=== PATIENT | male | born 1975 | race Caucasian/White ===

== ENCOUNTER 2025-03-15 15:43 | Emergency (ER) | payer SELFPAY ==
[2025-03-15 15:51] VITALS: BP 118/68; PULSE 90; RESP 20; TEMP 36.6; O2SAT 93
--- NOTE | 2025-03-15 16:02 | ED_ITS ---
HPI - URI/Sore Throat General Chief Complaint: Upper Respiratory Infection Stated Complaint: body ache Time Seen by Provider: 03/15/25 16:05 Source: patient, RN notes reviewed and old records reviewed Mode of arrival: ambulatory Limitations: no limitations History of Present Illness HPI Narrative: 49 year old male presents to express care with complaints of cough since yesterday reports that he has coughed so hard that he has vomited, has had hoarseness and also body aches. Patient reports that he just recently flew home from [facility]. Patient has not taken any OTC medication for his symptoms. Patient reports that cough is dry and he does feel some dyspnea with exertion. MD elicited complaint: cough and other (body aches and hoarseness, dyspnea with exertion) Onset (ago): day(s) (day 2 of symptoms) Severity: moderate Able to tolerate fluids by mouth: Yes Exacerbating factors: exertion Treatments prior to arrival: none Related Data Allergies Allergy/AdvReac Type Severity Reaction Status Date / Time No Known Allergies Allergy Unverified 11/19/17 12:59 Review of Systems Review of Systems: CONSTITUTIONAL: Reports malaise, chills, sweats, or fever. EYES: Denies visual changes, redness, or discharge. ENT: Reports rhinorrhea, congestion, sinus pain, no otalgia and no sore throat. CARDIOVASCULAR: Denies chest pain, palpitations, or edema. RESPIRATORY: Reports dry cough.? Reports some dyspnea with exertion GASTROINTESTINAL: Denies abdominal pain, nausea, has vomiting at times with cough, no diarrhea SKIN: Denies rash or itching. MUSCULOSKELETAL: Reports myalgia. NEUROLOGIC: Denies headache. All systems reviewed & are unremarkable except as noted in HPI and below PMFSH Past Medical History Medical History (Updated 03/17/25 @ 19:13 by Zully Jay NP) Elevated cholesterol Hypertension Surgical History Surgical History (Updated 03/17/25 @ 19:16 by Zully Jay NP) H/O adenoidectomy Social History Social History (Updated 03/17/25 @ 19:17 by Zully Jay NP) Smoking status: Never smoker Alcohol intake: current Alcohol use details: social Substance use type: does not use Living arrangements: with family Gender identity (if verbalized by the patient): Male Comments At time of signature, agree with nursing past medical, surgical, social and family history. There is no relevant family history pertinent to the presenting complaint Exam Narrative: GENERAL: Well-appearing, well-nourished, and in no acute distress. HEAD: Normocephalic EYES: PERRLA, conjunctivae clear ENT: Nares clear, turbinates edematous and erythematous, clear discharge. Mucous membranes moist. TM pearly iniguez with dull light reflex bilaterally; no tragal tenderness. Oropharynx erythematous without lesions. Tonsils not enlarged and without exudate, no drooling, no hoarseness, no trismus, uvula midline. NECK: Supple. No lymphadenopathy CHEST: Clear to auscultation, breath sounds equal. No wheezing, rhonchi, rales, or stridor. No respiratory distress, speaks in full sentences.cough SAO2 93% on room air HEART: Regular rate and rhythm. No murmur heard. SKIN: Warm, dry, no rash. NEURO: Alert and oriented x3. PSYCH: Normal mood and affect Course Course Emergency Course: Patient is aware of diagnosis, understands and agrees to treatment plan.? Anticipatory guidance given.? Patient agrees to follow-up as directed and is aware of reasons to seek care at the emergency department. Portions of this record may have been created with voice recognition software Level of Care: Express Care Visit Vital Signs Vital signs: Vital Signs Temperature 36.6 C 03/15/25 15:51 Pulse Rate 90 03/15/25 15:51 Respiratory Rate 20 03/15/25 15:51 Blood Pressure 118/68 03/15/25 15:51 Pulse Oximetry 93 03/15/25 15:51 Oxygen Delivery Room Air 03/15/25 15:51 Temperature 36.6 C 03/15/25 15:51 Pulse Rate 90 03/15/25 15:51 Respiratory Rate 20 03/15/25 15:51 Blood Pressure 118/68 03/15/25 15:51 Pulse Oximetry 93 03/15/25 15:51 Oxygen Delivery Room Air 03/15/25 15:51 Reviewed MDM - URI/Sore Throat MDM Narrative Medical decision making narrative: Differential diagnosis considered: Mol[place] virus, strep pharyngitis, allergic rhinitis, upper respiratory tract infection, sinusitis, rhinosinusitis, nasopharyngitis. viral pharyngitis, otitis media, otitis externa, pneumonia, bronchitis, viral cough syndrome, viral syndrome, and influenza.? Exam findings show no acute concerns or changes; patient is non-toxic appearing and is in no distress.? Patient is appropriate for outpatient treatment and follow-up. Differential Diagnosis Differential diagnosis: Likely upper respiratory infection, sinusitis, viral infection, influenza and other (acute cough, dyspnea with exertion) Medical Records Attestation: I reviewed the patient's medical records. Lab Data Attestation: I reviewed the patient's lab results. Lab results narrative: influenza A positive, Influenza B negative, Covid antigen negative Labs: Lab Results 03/15/25 Range/Units 15:58 POC Influenza A Ag Positive (Negative) POC Influenza B Ag Negative (Negative) POC SARS CoV-2 Ag Negative (Negative) reviewed Critical Care Time Critical Care Time Critical Care Time: No Discharge Plan Discharge Clinical Impression: Influenza A Patient Disposition: Home Condition: Stable Instructions: Antibiotic Form, Influenza (ED) Additional Instructions: Increase fluids especially juices and water [id number] cough and cold medicine of your choice for your symptoms Zyrtec Claritin or Sana daily Continue your inhaler/nebulizer as directed Steroids as directed--take with food heat to the face 20-30 minutes 4-6 times a day for pain Salt water gargles, throat lozenges or throat sprays as desired Monitor temperature daily If your symptoms persist, change or worsen significantly before you can contact your personal physician then please, without delay, go to the emergency department for further evaluation. Follow-up with PCP in 7-10 days or sooner if needed Must be fever free for 24 hours without use of Tylenol or Ibuprofen before you can be around others Patient Language: Danish Prescriptions: New albuterol sulfate [Ventolin HFA] 90 mcg/actuation HFA aerosol inhaler 2 puff inhalation QID PRN (Reason: shortness of breath or wheezing) Qty: 8.5 0RF prednisone 20 mg tablet 40 mg PO DAILY 5 Days Qty: 10 0RF Follow-up/Referrals: UNKNOWN,DOCTOR [Primary Care Provider] - Time of Disposition: 16:25 Quality [place] Coma Scale Eyes: Open Verbal: Oriented and Alert Motor: Follows Commands Rony Coma Total Score: 15
[2025-03-15 16:19] LABS: EDINFLUASCREEN Positive (Negative); EDINFLUBSCREEN Negative (Negative)
[2025-03-15 16:26] LABS: EDCOVIDSCREEN Negative (Negative)
--- OUTSIDE RECORDS SUMMARY | 2025-03-15 16:58 | XMS_ITS | Clinical Summary ---
Author Organization [facility] Address [address] [place] [address] Phone Care Team Providers Care Manager Salt Name Role Phone Provider, None Primary Care Provider Unavailabl e Allergies No known active allergies Medications traMADol (ULTRAM) 50 MG Tablet Take 1 Tab by mouth every 6 hours as needed for Pain. 20 Tab 11/19/2017 Active Social History Tobacco Use Types Packs/Day Years Used Date Smoking Tobacco: Never Smokeless Tobacco: Never Alcohol Use Standard Drinks/Week Comments Yes 0 (1 standard drink = 0.6 oz pur e alcohol) daily Sex and Gender Information Value Date Recorded Sex Assigned at Not on file Legal Sex Male 12:28 AM CDT Gender Identity Not on file Sexual Orientation Not on file Last Filed Vital Signs Vital Sign Reading Time Taken Comments Blood Pressure 128/94 11/19/2017 3:37 PM [employer] Pulse 76 11/19/2017 3:37 PM [employer] Temperature 36.9 C (98.4 F) 11/19/2017 2:40 PM [employer]IST Respiratory Rate 16 11/19/2017 2:40 PM [employer]IST Oxygen Saturation 98% 11/19/2017 2:40 PM [employer]IST Inhaled Oxygen Concentration - - Weight 113.4 kg (250 lb) 11/19/2017 2:40 PM D[employer]IST Height 180.3 cm (5' 11 ) 11/19/2017 2:40 PM D[employer]IST Body Mass Index 34.87 11/19/2017 2:40 PM D[employer] Plan of Treatment Not on file Care Teams Manager Salt Relationship Specialty Start Date End Date Provider, None [place] PCP - General 11/19/17
--- OUTSIDE RECORDS SUMMARY | 2025-03-15 16:58 | XMS_ITS | Data Portability ---
Author Organization [facility] Address [address] [facility] [place] [address] Care Team Providers Care Regulatory Compliance Director Name Role Phone JACKELIN HARRIS Primary Care Provider Assessment No assessment recorded. Plan of Treatment Reminders Order Date Submit Date Provider Last Modified By Organization Details Last Modified Time Details Appointments None recorded. Lab lipid panel, serum 2024 025 [email or web address] [facility], [address] [facility] [address], [place], [address], 5 13:21:03 prolactin, serum 2023 024 JORDEN [facility], [address] [facility] [address], [address], 4 17:09:57 cortisol, am, serum 2023 024 JORDEN [facility], [address] [facility], [facility], [place], [address], 4 17:09:56 testosteron e, free + total, serum 2023 024 JORDEN [facility], [address] [facility], [facility] [address], [place], [address], 4 17:09:57 testosteron e, free + total, serum 2023 024 JORDEN [facility], [address] [facility], [facility] [address], [place], [address], 4 19:08:46 TSH, ultra-sensi tive, serum 2023 024 JORDEN [facility], [address], [place], [address], 4 19:08:47 ferritin, serum or plasma 2023 024 JORDEN [facility], [address], [place], [address], 4 19:08:51 folate, serum 2023 024 JORDEN [facility], [address], [place], [address], 4 19:08:50 iron + total iron-bindin g capacity (TIBC), serum 2023 024 JORDEN [facility], [address], [place], [address], 4 19:08:49 retic count, blood 2023 024 JORDEN [facility], [address], [place], [address], 4 19:08:52 vitamin B12, serum 2023 024 JORDEN [facility], [address] [facility], [place], [address], 4 19:08:48 HbA1c (hemoglobin A1c), blood 2023 024 JORDEN In-Office Order, Internal Use Only DO Not Attach Compendium DO Not Attach Compendium, Do Not Delete/merge, [id number] 4 16:38:16 lipid panel, serum 2023 024 JORDEN [facility], [address], [place], [address], 4 09:13:34 albumin/cre atinine, mass ratio, urine 2023 024 WAVERLY [facility], [address] [facility], [facility], [place], [address], 4 09:13:33 Referral gastroenter ologist referral 2024 025 [email or web address] 1 [facility], [address], [place], [address], 5 13:00:26 mental health counselor referral 2023 024 [email or web address] Phoebe Sebastian [facility], [address] [facility] , [address], [place], [address], 4 15:55:35 Procedures None recorded. Surgeries None recorded. Imaging None recorded. Medication Orders amlodipine 10 mg tablet 2024 025 [id number], [address], [place], [place], [id number], 5 09:39:16 Cialis 10 mg tablet 2023 024 [facility]AVERLY [id number], [address], [place], [place], [id number], 4 16:29:01 amlodipine 10 mg tablet 2023 024 WAVERLY [facility] #[id number], [address], [place], [place], [id number], 4 11:44:14 Patient TargetsNo targets recorded. Patient Instructions Encounter Date Encounter Id Patient Instructions Last Modified By Organization Details Last Modified Time 03/06/2024 [id number] Attending Physician Addendum I did not personally see or examine the patient with the resident. I was physically present to provide indirect supervision through entire encounter. I have reviewed the documentation and agree with the history, physical findings, work-up, and medical decision making as recorded. MD barron [email or web address] Not available 03/06/2024 10:46:42 04/06/2024 [id number] A healthy lifestyle: care instructions Not available 04/06/2024 17:33:56 Attending Physician Addendum I did not personally see or examine the patient with the resident. I was physically present to provide indirect supervision through entire encounter. I have reviewed the documentation and agree with the history, physical findings, work-up, and medical decision making as recorded. Vangie Horvath MD [email or web address] Not available 04/13/2024 08:45:49 06/06/2024 [id number] On the date of this encounter, I was immediately available to assist the resident/fellow in the care of the patient, and have reviewed and agree with the resident s findings and plan of care. ~MD amparo [email or web address] Not available 06/22/2024 00:51:46 06/29/2024 [id number] On the date of this encounter, I was immediately available to assist the resident/fellow in the care of the patient, and have reviewed and agree with the resident s findings and plan of care. ~MD amparo [email or web address] Not available 06/29/2024 16:41:08 01/02/2025 [id number] A healthy lifestyle: care instructions [email or web address] Not available 01/02/2025 09:38:56 I was present in the clinic to discuss this patient at the time of the visit. I agree with the documented assessment and plan Semaj Lopez MD [email or web address] Not available 01/02/2025 09:45:18 Reason for Referral Mental Health Counselor Refe rral for Depressive disorder Referring Physician: Jackelin Harris, Family Medicine, Encounter Date: 06/29/2024 [employer] Specialist Referral for Screening for malignant neoplasm of colon screening colonoscopy only Referring Physician: Sandra Prajapati, Boardmarker, Encounter Date: 01/02/2025 Results Created Date Observation Date Name Description Value Unit Range Abnormal Flag Note LastModifiedBy Organization Detail LastModifiedTime 03/08/20 24 03/08/2024 HbA1c (hemo globi n A1c), blood HbA1c 5.6 Not Available In-Office Order Internal Use Only DO Not Attach Compendium DO Not Attach Compendium, Do Not Delete/merge, [id number] 03/06/2024 10:46:20 03/16/20 24 03/17/2024 ALBUM IN/CR EATIN INE RATIO ,URIN E creatinine, urine 56.9 mg/dL notest ab. Not Available [facility] ([facility]) [address] [place], [address], 03/17/2024 09:13:33 03/16/20 24 03/17/2024 ALBUM IN/CR EATIN INE RATIO ,URIN E albumin, urine 11.5 ug/mL notest ab. Not Available [facility] ([facility]) [address] [place], [address], 03/17/2024 09:13:33 03/16/20 24 03/17/2024 ALBUM IN/CR EATIN INE RATIO ,URIN E alb/creat ratio 20 mg/g_ creat 0-29 Uyen l: 0 - 29 Moder ately incre ased: 30 - 300 Sever amelia incre ased: >300 Not Available [facility] ([facility]) [address] [place], [address], 03/17/2024 09:13:33 03/16/20 24 03/17/2024 LIPID PANEL cholesterol, total 215 mg/dL 100-19 9 above high normal Not Available [facility] ([facility]) [address] [place], [address], 03/17/2024 09:13:34 03/16/20 24 03/17/2024 LIPID PANEL triglyceride s 207 mg/dL 0-149 above high normal Not Available [facility] ([facility]) [address] [place], [address], 03/17/2024 09:13:34 03/16/20 24 03/17/2024 LIPID PANEL HDL cholesterol 41 mg/dL >39 Not Available [facility] ([facility]) [address] [place], [address], 03/17/2024 09:13:34 03/16/2003/17/2024 LIPID PANEL VLDL cholesterol jarod 37 mg/dL 5-40 Not Available [facility] ([facility]) [address] [place], [address], 03/17/2024 09:13:34 03/16/20 24 03/17/2024 LIPID PANEL LDL chol calc ([facility]) 137 mg/dL 0-99 above high normal Not Available [facility] ([facility]) [address] [place], [address], 03/17/2024 09:13:34 04/06/20 24 04/07/2024 TESTO STERO NE,FR EE AND TOTAL testosterone 241 NG/dL 264-91 6 below low normal Adult male refer ence inter yasmine is based on a popul ation of healt hy nonob milan males (BMI <30) betwe en 19 and 39 years old. Leo aleman, et.al . JCEM 2017, 102;1 161-1 173. PMID: 02951 103. Not Available [facility] ([facility]) [address] [facility], [place], [address], 04/14/2024 19:08:45 04/06/20 24 04/14/2024 TESTO STERO NE,FR EE AND TOTAL free testosterone (direct) 1.9 pg/mL 6.8-21 .5 below low normal Not Available [facility] ([facility]) [address] [place], [address], 04/14/2024 19:08:45 04/06/2004/07/2024 TSH RFX ON ABNOR MAL TO FREE T4 TSH 1.010 uIU/m L 0.450- 4.500 Not Available [facility] ([facility]) [address] [place], [address], 04/14/2024 19:08:47 04/06/2004/07/2024 VITAM IN B12 W REFLE X <400 vitamin B12 1070 pg/mL 232-12 45 Not Available [facility] ([facility]) [address] [facility], [place], [address], 04/14/2024 19:08:48 04/06/2004/07/2024 IRON AND TIBC iron bind.cap.(TI BC) 262 ug/dL 250-45 0 Not Available [facility] ([facility]) [address] [facility], [place], [address], 04/14/2024 19:08:49 04/06/2004/07/2024 IRON AND TIBC UIBC 181 ug/dL 111-34 3 Not Available [facility] ([facility]) [address] [facility], [place], [address], 04/14/2024 19:08:49 04/06/2004/07/2024 IRON AND TIBC iron 81 ug/dL 38-169 Not Available [facility] ([facility]) [address] [facility], [place], [address], 04/14/2024 19:08:49 04/06/2004/07/2024 IRON AND TIBC iron saturation 31 % 15-55 Not Available [facility] ([facility]) [address] [facility], [place], [address], 04/14/2024 19:08:49 04/06/2004/07/2024 FOLAT E (FOLI C ACID) , SERUM folate (folic acid), serum 8.5 NG/mL >3.0 A serum folat e jonathan ntrat ion of less than 3.1 ng/mL is consi dered to repre sent clini jarod defic iency . Not Available [facility] ([facility]) [address] [facility], [place], [address], 04/14/2024 19:08:50 04/06/2014 0404/07/2024 QUE TIN ferritin 395 NG/mL 30-400 Not Available [facility] ([facility]) [address] [place], [address], 04/14/2024 19:08:51 04/06/20 24 04/07/2024 RETIC ULOCY TE COUNT reticulocyte count 1.7 % 0.6-2. 6 Not Available [facility] ([facility]) [address] [place], [address], 04/14/2024 19:08:52 04/24/20 24 04/25/2024 FSH AND LH LH 9.4 mIU/m L 1.7-8. 6 above high normal Not Available [facility] ([facility]) [address] [place], [address], 04/25/2024 13:11:35 04/24/20 24 04/25/2024 FSH AND LH FSH 11.9 mIU/m L 1.5-12 .4 Not Available [facility] ([facility]) [address] [place], [address], 04/25/2024 13:11:35 06/26/20 24 06/27/2024 CORTI DOLORES - AM cortisol - AM 10.3 ug/dL 6.2-19 .4 Not Available [facility] ([facility]) [address] [place], [address], 06/28/2024 17:09:56 06/26/20 24 06/27/2024 TESTO STERO NE,FR EE AND TOTAL testosterone 348 NG/dL 264-91 6 Adult male refer ence inter yasmine is based on a popul ation of healt hy nonob milan males (BMI <30) betwe en 19 and 39 years old. Leo aleman et.al . JCEM 2017, 102;1 161-1 173. PMID: 32228 103. Not Available [facility] ([facility]) [address] [place], [address], 06/28/2024 17:09:56 06/26/20 24 06/28/2024 TESTO STERO NE,FR EE AND TOTAL free testosterone (direct) 5.4 pg/mL 6.8-21 .5 below low normal Not Available [facility] ([facility]) [address] [facility], [place], [address], 06/28/2024 17:09:56 06/26/20 24 06/27/2024 PROLA CTIN prolactin 7.9 NG/mL 3.9-22 .7 Not Available [facility] ([facility]) [address] [facility], [place], [address], 06/28/2024 17:09:57 Result Notes None recorded. Problems Name Problem SNOMED Code Status Onset Date Resolution Date Notes Provider Name and Address Organization Details Recorded Time Essential hypertension 63140396 Active 2023 JACKELIN HARRIS MD Attn: Mindy gill,[address] [place], [address], [facility] 4 18:22:40 Obesity 380637850 Active 2023 JACKELIN HARRIS MD Attn: Mindy gill,[address] [place], [address], [place] [facility] 4 18:23:00 Reduced libido 3836778 Active 2023 JACKELIN HARRIS MD Attn: Mindy gill,[address] [place], [address], [place] [facility] 4 16:13:14 Hyperlipidemia 16152266 Active 2024 SANDRA PRAJAPATI DO Attn: Mindy gill,[address] [place], [address], [facility] 5 09:31:06 Problem Notes None recorded. Medical Equipment None Reported. Allergies No known drug allergies Medications Name Sig Start Date Stop Date Status Note LastModified by Organization Details LastModified Time amlodipine 10 mg tablet TAKE 1 TABLET BY MOUTH EVERY DAY active Not Available Not Available No t Available rosuvastati n 20 mg tablet TAKE 1 TABLET BY MOUTH EVERY DAY active Not Available Not Available No t Available tadalafil 10 mg tablet TAKE 1 TABLET BY MOUTH NEEDED 06/29 completed pt states it doesn't work ( 4) Not Available Not Available Not Available Vitals Date Recorded Body height Body mass index (BMI) Body weight Oxygen saturation Oxygen saturation in Arterial blood by Pulse oximetry Heart rate Respiratory rate Body temperature Systolic blood pressure Diastolic blood pressure Provider Name and Address Organization Details Last Updated DateTime 4 177.8 cm 34.9 kg/m2 598460. 75 g 95 % 95 % 80 /min 18 /min 96.5 [degF] 171 mm[Hg] 84 mm[Hg] Mauri simons [facility] [place] - [facility] 4 09:48:53 Date Recorded Body height Body mass index (BMI) Body weight Body temperature Respiratory rate Oxygen saturation Oxygen saturation in Arterial blood by Pulse oximetry Systolic blood pressure Diastolic blood pressure Provider Name and Address Organization Details Last Updated DateTime 4 177.8 cm 35 kg/m2 604326. 24 g 96.7 [degF] 18 /min 97 % 97 % 134 mm[Hg] 81 mm[Hg] Mauri simons [facility] [place] [facility] 4 15:40:45 Date Recorded Body height Body mass index (BMI) Body weight Respiratory rate Oxygen saturation Oxygen saturation in Arterial blood by Pulse oximetry Heart rate Body temperature Systolic blood pressure Diastolic blood pressure Provider Name and Address Organization Details Last Updated DateTime 4 177.8 cm 35.6 kg/m2 047034. 34 g 18 /min 93 % 93 % 71 /min 97.8 [degF] 130 mm[Hg] 86 mm[Hg] Basia Jenkins [facility] [place] - [facility] 4 15:52:57 Date Recorded Body height Body mass index (BMI) Body weight Heart rate Respiratory rate Body temperature Systolic blood pressure Diastolic blood pressure Provider Name and Address Organization Details Last Updated DateTime 4 177.8 cm 35.6 kg/m2 491220. 26 g 82 /min 18 /min 97.8 [degF] 129 mm[Hg] 76 mm[Hg] Molly Mcmanus MA [facility] 4 16:27:40 Date Recorded Body height Body mass index (BMI) Body weight Body temperature Respiratory rate Heart rate Oxygen saturation Oxygen saturation in Arterial blood by Pulse oximetry Systolic blood pressure Diastolic blood pressure Provider Name and Address Organization Details Last Updated DateTime 5 177.8 cm 37.9 kg/m2 885398. 44 g 98.6 [degF] 20 /min 80 /min 95 % 95 % 134 mm[Hg] 90 mm[Hg] Medina Miller MA [facility] 5 09:15:55 Social History Question Answer Notes LastModified by Organizat ion Details LastModified Time Tobacco Smoking Status Never [facility]oker [facility] 03/06/2024 09:42:14 Do You Have An Advance Directive? Yes Information not available 03/06/2024 What Is Your Level Of Alcohol Consumption? Moderate Information not available 03/06/2024 How Many Years Have You Consumed Alcohol? 14 Information not available 03/06/2024 Are You Blind Or Do You Have Difficulty Seeing? No Information not available 03/06/2024 What Is Your Level Of Caffeine Consumption? Moderate 5 Hr Energy 1 A Day Soda Sometimes Information not available 03/06/2024 In The 14 Days Before Symptom Onset, Have You Had Close Contact With A Laboratory-confi rmed COVID-19 While That Case Was Ill? No Information not available 03/06/2024 In The 14 Days Before Symptom Onset, Have You Had Close Contact With A Person Who Is Under Investigation For COVID-19 While That Person Was Ill? No Information not available 03/06/2024 Have You Been To An Area Known To Be High Risk For COVID-19? No Information not available 03/06/2024 Are You Currently Employed? Yes Information not available 03/06/2024 Are You Deaf Or Do You Have Serious Difficulty Hearing? No Information not available 03/06/2024 What Type Of Diet Are You Following? REGULAR Information not available 03/06/2024 What Is Your Occupation? Self Employed [employer] Information not available 03/06/2024 What Was The Date Of Your Most Recent Tobacco Screening? 01/02/2025 Information not available 01/02/2025 How Many Children Do You Have? 4 Information not available 03/06/2024 Do You Use Protection During Sex? No Information not available 03/06/2024 What Is Your Relationship Status? Information not available 03/06/2024 Do You Use Your Seat Belt Or Car Seat Routinely? Yes Information not available 03/06/2024 Are You Sexually Active? Yes Information not available 03/06/2024 Do You Have Smoke And Carbon Monoxide Detectors In Your Home? Yes Information not available 03/06/2024 Are You Passively Exposed To Smoke? Yes Information not available 03/06/2024 Do You Feel Stressed (tense, Restless, Nervous, Or Anxious, Or Unable To Sleep At Night)? [id number] Information not available 03/06/2024 Do You Use Any Illicit Or Recreational Drugs? No Information not available 06/06/2024 Do You Use Sunscreen Routinely? Yes Information not available 03/06/2024 Has Tobacco Cessation Counseling Been Provided? Yes Information not available 06/06/2024 On What Date Was Tobacco Cessation Counseling Provided? 01/02/2025 Information not available 01/02/2025 Do You Or Have You Ever Used Any Other Forms Of Tobacco Or Nicotine? No Information not available 06/06/2024 Sex: Male Functional Status Question Answer Note LastModified by Organization D etails LastModified Time Are you able to care for yourself? Yes Information not available 03/06/2024 What is your exercise level? Moderate Information not available 03/06/2024 Mental Status None recorded. Family History Relationship Description Onset Age of this Age Resolved Age Notes LastModified by Organization Details LastModified Time Sister Hypertensive disorder [email or web address] Not available 09:40:44 Notes:04/07/24, 01/02/25 Medical History No medical history recorded. Immunizations Vaccine Type Date Status Note Provider Juanito stahl and Address Organization Details Recorded Time Tdap 03/06/2024 completed Rere Noble LPN [facility], [place] - [facility] 03/07/2024 14:55:18 Past Encounters Encounter ID Performer Location Encounter Start Date Encounter Closed Date Diagnosis/Indication Diagnosis SNOMED-CT Code Diagnosis ICD10 Code Diagnosis Note [id number] MD Alejo Caldera 14 [address] [facility] [place] [address] 03/06/2024 09:27:59 03/20/2024 13:27:08 Administration of diphtheria, pertussis, and tetanus vaccine 269455298 Z23 patient due for tetanus booster Essential hypertension 10372003 I10 patient has elevated blood pressure in 2 separate locations and time. today blood pressure is elevated to 171/84. will start patient on amlodipine 10 mg as this will help patient's blood pressure . Will eval erectile dysfunctio n during next visit; amlodipine unlikely to worsen it. Obesity 824269072 E66.9 patient has no previous hemoglobin A1c results. will tests hemoglobin A1c to rule out diabetes [id number] MD Alejo Caldera 14 [address] [facility] [address] [place] [address] 04/06/2024 15:32:10 04/14/2024 13:14:18 Erectile dysfunction 369003663 F52.21 Patient has low energy low libido and endorses erectile dysfunctio n. Patient has not seen a doctor previously has had no previous workup done. We will assess for medical causes for lethargy that includes testostero ne levels, TSH, vitamin B12, and iron deficiency . We will provide patient with Cialis 10 mg as needed for now. Per chart review patient had slight elevations in LH and FSH but with normal testostero ne level. Maybe the testostero ne level was not done morning produces skewed result. We fully we will get more answers with repeat results. Patient does not qualify for primary hypogonadi sm if testostero ne is within normal limits. The new labs should shed light on the matter.Pre vious lab showed normal TSH and B12. Will also consider psych etiology if labs come back normal Obesity 203634565 E66.9 patient instructed to keep a log of his b/p before and after taking medication and bring back in 2wks.e - limit/avoi d consumptio n of processed foods. choose a diet rich in fruits, and vegetables , low fat, low carbs. - Eat less salt (sodium) - Excercise for at least 30 minutes a day on most days of the week - Limit the amount of caffine and alcohol you drink Essential hypertension 99011107 I10 patient has elevated blood pressure in 2 separate locations and time. Previous blood pressure was elevated to 171/84 so patient was started on amlodipine 10 mg daily. Today was 134/80. We will continue current medication . [id number] MD Alejo Beltran 14 IM [address] [facility] [place] [address] 06/06/2024 15:23:26 06/22/2024 14:16:12 Essential hypertension 61106061 I10 patient has elevated blood pressure in 2 separate locations and time. Previous blood pressure was elevated to 171/84 so patient was started on amlodipine 10 mg daily. Today was 134/80. We will continue current medication . Reduced libido 0721850 R 68.82 patient was prescribed sildenafil last time which did not help. we will further investigat e he has reduced libido check fast a.m. prolactin cortisols and testostero ne levels [id number] MD Alejo Beltran 14 IM [address] [facility] [place] [address] 06/29/2024 16:19:37 07/31/2024 12:37:39 Depressive disorder 50753906 F32.A Patient meets criteria for possible depressive disorder. Prev PHQ9 on 04/06 was postive with a score of 8. Patient informed benefits of Wellbutrin low libido and depression . Patient states he would think about it but would not like to start medication s at this time. Patient prefers counseling referral as a starting point. Physical reasons ruled out as testostero ne prolactin cortisol and FSH within normal limits [id number] MD Alejo Layton 14 IM [address] [facility] [place] [address] 01/02/2025 09:01:15 01/12/2025 11:36:56 Obesity 388354011 E66.9 Healthy lifestyle encouraged including regular exercise of at least 150min per week, diet rich in plant based foods and low in added sugars, processed carbohydra autumn, and high salt foods. Encouraged protein intake mostly with chicken and white fish and limited red meat. Essential hypertension 66575547 I10 Chronic controlled Continue amlodipine 10mg dailyFollo w up in 6 months Hyperlipidemia 52097445 E78.5 Chronic not at goallast LDL Feb 2024 - 137Started on rosuvastat in 20mg at that timeWill recheck lipid panel Screening for malignant neoplasm of colon 296188988 Z12.11 Will send referral to GI for screening colonoscop y onlyHe is self pay so if this is an issue we can try to send cologuard (may have financial assistance on their website) Health Concerns Section Related Observation LastModified by Organization Detai ls LastModified Time None Recorded Concern Status LastModified by Organization Details LastModified Time None Recorded Advance Directives Directive Y: Payers Encounter Date Sequence Insurance Name Policy Number Policy Almeida Covered Member ID Almeida Member ID Guarantor Name 04/06/2024 1 *SELF PAY* Ri cky Whyers 06/06/2024 1 *SELF PAY* Ri y Whyers Notes Date Note Type Note Provider Name and Address Organization Details Recorded Time 4 text/html 48 yo male with no known past medical history here to establish care. Patient states that he hasnt seen doc in 20 years. patient informs me that he went to [facility] due to low energy and libido and found out to have high blood pressure 190/20. Patient does complain of getting blurry vision at times. Patient denies severe headaches, nausea, vomiting, chest pain. patient denies history of smoking. Patient does state that he gets Lethargy in afternoon along with libido issues. Patient states he gets an erection for maybe a minute. Sometimes problems getting an erection but has no problem with morning erections. familyno diabetesno htnno strokesno cancerdad had valve replacement Socialfloor sheet metal duct installer workno smokingno drugsalcohol = 2 times a week couple of beers Vangie Horvath MD Attn: Accounting,[address] [facility], [place], [address], [facility] 03/15/2024 12:29:36 4 text/html 48 yo male with past medical history of essential hypertension here to follow-up. Patient states that he has been feeling okay since starting blood pressure meds. Does not complain of any side effects. Patient still endorses low energy and libido. Patient does state that he gets Lethargy in afternoon along with libido issues. Patient states he gets an erection for maybe a minute. Sometimes problems getting an erection but has no problem with morning erections. Patient denies severe headaches, nausea, vomiting, chest pain. patient denies history of smoking. Patient denies any back pain. familyno diabetesno htnno strokesno cancerdad had valve replacementSocialfloor sheet metal duct installer workno smokingno drugsalcohol = 2 times a week couple of ed Horvath MD Attn: Accounting,[address] [facility], [place], [address], [facility] 04/13/2024 08:45:59 4 text/html 48 yo male with past medical history of essential hypertension here to follow-up. Patient states that he has been feeling okay since starting blood pressure meds. Patient still endorses low energy and libido. Patient does state that he gets Lethargy in afternoon along with libido issues. Patient states he gets an erection for maybe a minute. Sometimes problems getting an erection but has no problem with morning erections. patient was prescribed to tadalafil patient states that did not help. Patient denies severe headaches, nausea, vomiting, chest pain. patient denies history of smoking. Patient denies any back pain. familyno diabetesno htnno strokesno cancerdad had valve replacementSocialfloor sheet metal duct installer workno smokingno drugsalcohol = 2 times a week couple of ed Silverman MD Attn: Accounting,[address] [facility], [place], [address], [facility] 06/22/2024 00:51:51 4 text/html 48 yo male with past medical history of essential hypertension here to follow-up on his low mood, energy and libido. Patient still endorses low energy and libido. Patient does state that he gets Lethargy in afternoon along with libido issues. Patient states he gets an erection for maybe a minute. Sometimes problems getting an erection but has no problem with morning erections. patient was prescribed to tadalafil patient states that did not help. Patient denies severe headaches, nausea, vomiting, chest pain. patient denies history of smoking. Patient denies any back pain.Patient informed of lab work ruling out physical reasons for his low libido and low energy. Patient not willing to start any antidepressants including Wellbutrin at this time. familyno diabetesno htnno strokesno cancerdad had valve replacementSocialfloor sheet metal duct installer workno smokingno drugsalcohol = 2 times a week couple of beers Bethany Silverman MD Attn: Accounting,[address] [facility], [place], [address], [facility] 07/28/2024 18:06:21 5 text/html 49 yo M presents to clinic for HTN follow up Does not take BP at home. No chest pain, SOB or headaches. Compliant with medications. Semaj Lopez MD Attn: Accounting,[address] [facility], [place], [address], [facility] 01/08/2025 08:03:25
== END 2025-03-15 16:32 | disposition home or self-care (01) ==
PROVIDERS: Emergency Provider Registered Nurse
DX: J10.1 Influenza due to other identified influenza virus with other respiratory manifestations (principal); I10 Essential (primary) hypertension; Z20.822 Contact with and (suspected) exposure to COVID-19
CPT/HCPCS: 87426; 87804; 99213; G0463